=== PATIENT | female | born 1965 | race Caucasian/White ===

== ENCOUNTER 2022-06-21 11:43 | Emergency (ER) | payer MEDICAID, SELFPAY ==
[2022-06-21 12:19] VITALS: BP 155/89; PULSE 87; RESP 16; TEMP 36.4; O2SAT 100; BMI 21.3
[2022-06-21 12:39] LABS: Appearance Urine Clear (Clear); Bilirubin Urine Negative (Negative); Blood Urine Negative (Negative); Color Urine Yellow (Yellow); Glucose Urine Negative (Negative); Ketones Urine Negative (Negative); Leukocyte Esterase Urine Negative (Negative); Nitrite Urine Negative (Negative); Protein Urine Negative (Negative); Urobilinogen Urine 0.2 (0.2-1.0); pH Urine 6.5 (5.0-8.5)
[2022-06-21 13:09] VITALS: BP 145/84; PULSE 77; RESP 22; O2SAT 97
--- NOTE | 2022-06-21 13:16 | CRLHL7_ITS ---
For Patients: As a result of the Century Cures Act, medical imaging exams and procedure reports are released immediately into your electronic medical record. You may view this report before your referring provider. If you have questions, please contact your health care provider. INDICATION: Shortness of breath. TECHNIQUE: Chest 2 views. COMPARISON: None. FINDINGS: Cardiovascular and mediastinum: Unremarkable. Lungs and pleural spaces: The lungs are clear. No pleural effusion or pneumothorax. Bones and soft tissues: No significant findings. IMPRESSION: No evidence of an acute pulmonary process. Dictated by Shin Reyes MD @ 06/21/2022 3:05:56 PM (Electronically Signed)
--- NOTE | 2022-06-21 13:18 | CRLHL7_ITS ---
For Patients: As a result of the Century Cures Act, medical imaging exams and procedure reports are released immediately into your electronic medical record. You may view this report before your referring provider. If you have questions, please contact your health care provider. INDICATION: Left upper quadrant pain. TECHNIQUE: CT abdomen and pelvis without contrast. Coronal and sagittal reformats were generated. COMPARISON: None. FINDINGS: Lower chest: Unremarkable. Liver: Unremarkable within limitations of lack of contrast. Gallbladder and bile ducts: Unremarkable. No stones or inflammation. No biliary dilation. Spleen: Unremarkable within limitations of lack of contrast. Soft tissue density nodule in the hilum is probably a splenule. Pancreas: Unremarkable. Adrenal glands: Unremarkable. No nodules. Kidneys and Ureters: No stones or hydronephrosis. Lymph Nodes and Retroperitoneum: Unremarkable. Vasculature: Unremarkable. GI tract: Unremarkable. Normal in caliber. Few diverticula project from the distal colon. No inflammatory changes to suggest diverticulitis. Peritoneum/Abdominal Wall: Unremarkable. No free air or free fluid. Pelvic Viscera: The uterus is retroflexed. Calcification along the left posterior uterus could be an exophytic degenerating fibroid or focus of scarring from previous fat necrosis. Bladder: Unremarkable. Bones: Unremarkable for age. IMPRESSION: No CT findings to explain the cause of the patient`s symptoms, within limitations of lack of contrast. Please note that all CT scans at this facility use dose modulation, iterative reconstruction, and/or weight-based dosing when appropriate to reduce radiation dose to as low as reasonably achievable. Dictated by Jayme Delgadillo MD @ 06/21/2022 3:06:14 PM (Electronically Signed)
[2022-06-21] MEDS: 0.9 % SODIUM CHLORIDE 1000 ml 1,000 ML IV (13:38)
[2022-06-21] MEDS: ONDANSETRON 2 MG/ML inj 4 MG IVP (13:38)
[2022-06-21 13:40] LABS: Lactate* 0.8 mmol/L (0.5-1.9)
[2022-06-21 13:41] LABS: Troponin, Point-of-Care* 0.01 ng/ml (0.01-0.04)
--- NOTE | 2022-06-21 13:41 | ED_ITS ---
HPI - General Adult General Chief complaint: Abdominal Pain Stated complaint: Stabbing pain right side, nausea Time Seen by Provider: 06/21/22 13:07 Source: patient Mode of arrival: ambulatory Limitations: no limitations History of Present Illness HPI narrative: 56-year-old female coming in today complaining of abdominal pain that started earlier this morning. Pain is located on the left upper abdomen does not r adiate. Nothing makes it better or worse. The pain is constant and she will have waves of sharp pain gets worse. She states that she feels very nauseated but has not vomited. Denies any fevers or chills. Denies any coughing or chest pain. She does not feel short of breath. She denies any urinary symptoms such as increased frequency, urgency or dysuria. No blood in her urine. She states that she had an episode of diarrhea this morning, otherwise stools have been normal for her. She states that she has been feeling dizzy for multiple weeks now. Today is a little bit worse. It is worse with any movement. The room starts to move around her. Patient is on lisinopril and omeprazole for hypertension and GERD. Denies any new medications or recent changes. She does also have a history of migraine headaches, tobacco use disorder, and anxiety. Related Data Home Medications Medication Instructions Recorded Confirmed lisinopril 10 mg tablet 20 mg PO DAILY 06/21/22 06/21/22 omeprazole 20 mg capsule,delayed 20 mg PO DAILY 06/21/22 06/21/22 release Allergies Allergy/AdvReac Type Severity Reaction Status Date / Time Sulfa (Sulfonamide Allergy Mild Verified 06/21/22 12:23 Antibiotics) Review of Systems Status of ROS: Reports: 10 or more systems reviewed and unremarkable except as noted in History and below [facility] Social History Smoking Status: Current every day smoker How often do you have a drink containing alcohol: 4 or more times a week AUDIT-C Alcohol total score: 4 Non-prescribed substance use: denies use Exam Narrative: Exam Narrative: Well-nourished well-developed patient, appears uncomfortable. Alert and oriented. Answers questions appropriately. Mood and affect are appropriate. Thoughts are goal oriented and rational. No tangential or magical thinking noted. Patient speaks in full sentences without needing to catch her breath. Voice is not slurred or pressured. HEENT: Normocephalic atraumatic. Pupils are equally round reactive to light. Extraocular muscles are intact. Conjunctivae are moist without any icterus noted. Moist mucous membranes. Posterior pharynx is normal. Neck is soft without any lymphadenopathy or thyromegaly. No masses are appreciated. Cardiovascular: Heart is regular rate and rhythm S1 and S2 are present without any murmurs. Lungs: Clear to auscultation bilaterally no wheezes rhonchi or rales are appreciated. Patient takes deep breaths without any discomfort. Abdomen: Soft and nondistended with normal bowel sounds. No guarding or rebound. No masses or organomegaly appreciated. She has no specific tenderness on the left side of the abdomen upper quadrant greater than the lower quadrant. No CVA tenderness. Extremities: Bilateral lower extremities are without edema. Normal DP and PT pulses. Skin: Well perfused without any obvious rashes. Strength is 5/5 of the upper and lower extremities. Reflexes are 2+ and symmetric at the knees. Cranial nerves 3-12 are normal. There is no nystagmus either horizontally or vertically. Gait is normal. Const: Vital Signs, click to edit/add: Vital Signs - 24 hr 06/21/22 12:19 06/21/22 13:09 Temperature 97.6 F Pulse Rate [Right Pulse Oximeter] 87 77 Respiratory Rate 16 22 Blood Pressure [Ri ght Upper Arm] 155/89 H 145/84 H Pulse Oximetry 100 97 Oxygen Delivery Me thod Room Air Room Air Course Course Hospital Course: Patient received IV fluids, Zofran and morphine for pain control. Lab work was entirely unremarkable. Chest x-ray, read by me, was normal. Abdominal CT was unremarkable. Vital Signs Vital signs: Initial Vital Signs Temperature 97.6 F 06/21/22 12:19 Temperature Source Temporal Artery Scan 06/21/22 12:19 Pulse Rate 87 06/21/22 12:19 Pulse Rhythm 06/21/22 12:19 Respiratory Rate 16 06/21/22 12:19 Blood Pressure 155/89 H 06/21/22 12:19 Blood Pressure Mean 111 06/21/22 12:19 Blood Pressure Position Sitting 06/21/22 12:19 Pulse Oximetry 100 06/21/22 12:19 Oxygen Delivery Method 06/21/22 12:19 Vital Signs Temperature 97.6 F 06/21/22 12:19 Pulse Rate 87 06/21/22 12:19 Respiratory Rate 16 06/21/22 12:19 Blood Pressure 155/89 H 06/21/22 12:19 Pulse Oximetry 100 06/21/22 12:19 Oxygen Delivery Method 06/21/22 12:19 Temperature 97.6 F 06/21/22 12:19 Pulse Rate 77 06/21/22 13:09 Respiratory Rate 22 06/21/22 13:09 Blood Pressure 145/84 H 06/21/22 13:09 Pulse Oximetry 97 06/21/22 13:09 Oxygen Delivery Method 06/21/22 13:09 Medical Decision Making MDM Narrative Medical decision making narrative: 56-year-old female with left-sided abdominal pain of unclear etiology. We discussed muscle pain, gastritis. We discussed symptomatic treatment and reasons for follow-up. Lab Data Labs: Lab Results 06/21/22 06/21/22 06/21/22 Range/Units 12:25 13:28 13:28 WBC 6.49 (4.50-11.00) K/uL RBC 3.71 L (4.00-5.20) m/uL Hgb 12.5 (12.0-16.0) gm/dL Hct 35.7 (33.0-51.0) % MCV 96 (80-100) fL MCH 34 (26-34) pg MCHC 35 (32-36) gm/dL RDW Coeff of Kenneth 11.4 L (11.5-15.5) % Plt Count 287 (140-440) K/uL Neut % (Auto) 68.2 (42.0-72.0) % Lymph % (Auto) 22.2 (20-44) % [place] % (Auto) 8.0 (0.0-11.0) % Eos % (Auto) 0.9 (0.0-7.0) % Baso % (Auto) 0.5 (0.0-3.0) % Neut # (Auto) 4.43 (1.7-7.0) K/uL Lymph # (Auto) 1.44 (0.90-2.90) K/uL [place] # (Auto) 0.50 (0.00-0.90) K/UL Eos # (Auto) 0.06 (0.00-0.50) K/uL Baso # (Auto) 0.03 (0.00-0.30) K/uL Abs Immat Gran (auto) 0.01 (0.00-0.30) K/uL Imm/Tot Granulo (auto) 0.2 % ESR (2-20) mm/hr D-Dimer Quant (PE/DVT) (0.00-0.50) ug/ml Sodium 133 L (135-149) mmol/L Potassium 4.2 (3.6-5.1) mmol/L Chloride 102 (96-114) mmol/L Carbon Dioxide 24 (20-32) mmol/L BUN 11 (7-30) mg/dL Creatinine 0.6 (0.5-1.5) mg/dL Estimated Creat Clear 104.96 Estimated GFR 105 ml/min Glucose 95 (60-115) mg/dL Lactate (0.5-1.9) mmol/L Calcium 10.5 (8.4-10.6) mg/dL Total Bilirubin (0.1-1.5) mg/dL Direct Bilirubin (0.0-0.5) mg/dL AST (12-35) U/L ALT (4-35) U/L Alkaline Phosphatase (40-150) U/L C-Reactive Protein < 0.5 L (0.5-1.0) mg/dL Total Protein (6.0-8.3) g/dL Albumin (3.3-5.0) g/dL Lipase (23-300) U/L Urine Color Yellow (Yellow) Urine Appearance Clear (Clear) Urine pH 6.5 (5.0-8.5) Ur Specific [place] 1.010 (1.000-1.030) Urine Protein Negative (Negative) Urine Glucose (UA) Negative (Negative) Urine Ketones Negative (Negative) Urine Blood Negative (Negative) Urine Nitrite Negative (Negative) Urine Bilirubin Negative (Negative) Urine Urobilinogen 0.2 (0.2-1.0) Ur Leukocyte Esterase Negative (Negative) POC Troponin I (0.01-0.04) ng/ml 06/21/22 06/21/22 06/21/22 Range/Units 13:28 13:28 13:28 WBC (4.50-11.00) K/uL RBC (4.00-5.20) m/uL Hgb (12.0-16.0) gm/dL Hct (33.0-51.0) % MCV (80-100) fL MCH (26-34) pg MCHC (32-36) gm/dL RDW Coeff of Kenneth (11.5-15.5) % Plt Count (140-440) K/uL Neut % (Auto) (42.0-72.0) % Lymph % (Auto) (20-44) % [place] % (Auto) (0.0-11.0) % Eos % (Auto) (0.0-7.0) % Baso % (Auto) (0.0-3.0) % Neut # (Auto) (1.7-7.0) K/uL Lymph # (Auto) (0.90-2.90) K/uL [place] # (Auto) (0.00-0.90) K/UL Eos # (Auto) (0.00-0.50) K/uL Baso # (Auto) (0.00-0.30) K/uL Abs Immat Gran (auto) (0.00-0.30) K/uL Imm/Tot Granulo (auto) % ESR 5 (2-20) mm/hr D-Dimer Quant (PE/DVT) < 0.27 (0.00-0.50) ug/ml Sodium (135-149) mmol/L Potassium (3.6-5.1) mmol/L Chloride (96-114) mmol/L Carbon Dioxide (20-32) mmol/L BUN (7-30) mg/dL Creatinine (0.5-1.5) mg/dL Estimated Creat Clear Estimated GFR ml/min Glucose (60-115) mg/dL Lactate (0.5-1.9) mmol/L Calcium (8.4-10.6) mg/dL Total Bilirubin 0.9 (0.1-1.5) mg/dL Direct Bilirubin 0.2 (0.0-0.5) mg/dL AST 32 (12-35) U/L ALT 23 (4-35) U/L Alkaline Phosphatase 92 (40-150) U/L C-Reactive Protein (0.5-1.0) mg/dL Total Protein 7.6 (6.0-8.3) g/dL Albumin 4.8 (3.3-5.0) g/dL Lipase 114 (23-300) U/L Urine Color (Yellow) Urine Appearance (Clear) Urine pH (5.0-8.5) Ur Specific [place] (1.000-1.030) Urine Protein (Negative) Urine Glucose (UA) (Negative) Urine Ketones (Negative) Urine Blood (Negative) Urine Nitrite (Negative) Urine Bilirubin (Negative) Urine Urobilinogen (0.2-1.0) Ur Leukocyte Esterase (Negative) POC Troponin I (0.01-0.04) ng/ml 06/21/22 06/21/22 Range/Units 13:28 13:28 WBC (4.50-11.00) K/uL RBC (4.00-5.20) m/uL Hgb (12.0-16.0) gm/dL Hct (33.0-51.0) % MCV (80-100) fL MCH (26-34) pg MCHC (32-36) gm/dL RDW Coeff of Kenneth (11.5-15.5) % Plt Count (140-440) K/uL Neut % (Auto) (42.0-72.0) % Lymph % (Auto) (20-44) % [place] % (Auto) (0.0-11.0) % Eos % (Auto) (0.0-7.0) % Baso % (Auto) (0.0-3.0) % Neut # (Auto) (1.7-7.0) K/uL Lymph # (Auto) (0.90-2.90) K/uL [place] # (Auto) (0.00-0.90) K/UL Eos # (Auto) (0.00-0.50) K/uL Baso # (Auto) (0.00-0.30) K/uL Abs Immat Gran (auto) (0.00-0.30) K/uL Imm/Tot Granulo (auto) % ESR (2-20) mm/hr D-Dimer Quant (PE/DVT) (0.00-0.50) ug/ml Sodium (135-149) mmol/L Potassium (3.6-5.1) mmol/L Chloride (96-114) mmol/L Carbon Dioxide (20-32) mmol/L BUN (7-30) mg/dL Creatinine (0.5-1.5) mg/dL Estimated Creat Clear Estimated GFR ml/min Glucose (60-115) mg/dL Lactate 0.8 (0.5-1.9) mmol/L Calcium (8.4-10.6) mg/dL Total Bilirubin (0.1-1.5) mg/dL Direct Bilirubin (0.0-0.5) mg/dL AST (12-35) U/L ALT (4-35) U/L Alkaline Phosphatase (40-150) U/L C-Reactive Protein (0.5-1.0) mg/dL Total Protein (6.0-8.3) g/dL Albumin (3.3-5.0) g/dL Lipase (23-300) U/L Urine Color (Yellow) Urine Appearance (Clear) Urine pH (5.0-8.5) Ur Specific [place] (1.000-1.030) Urine Protein (Negative) Urine Glucose (UA) (Negative) Urine Ketones (Negative) Urine Blood (Negative) Urine Nitrite (Negative) Urine Bilirubin (Negative) Urine Urobilinogen (0.2-1.0) Ur Leukocyte Esterase (Negative) POC Troponin I 0.01 (0.01-0.04) ng/ml Imaging Data Chest x-ray: Attestation: I have reviewed the pertinent imaging results. Radiologist's impression: Chest 2 views. COMPARISON: None. FINDINGS: Cardiovascular and mediastinum: Unremarkable. Lungs and pleural spaces: The lungs are clear. No pleural effusion or pneumothorax. Bones and soft tissues: No significant findings. IMPRESSION: No evidence of an acute pulmonary process. CT scan - abdomen: Attestation: I have reviewed the pertinent imaging results. Radiologist's impression: CT abdomen and pelvis without contrast. Coronal and sagittal reformats were generated. COMPARISON: None. FINDINGS: Lower chest: Unremarkable. Liver: Unremarkable within limitations of lack of contrast. Gallbladder and bile ducts: Unremarkable. No stones or inflammation. No biliary dilation. Spleen: Unremarkable within limitations of lack of contrast. Soft tissue density nodule in the hilum is probably a splenule. Pancreas: Unremarkable. Adrenal glands: Unremarkable. No nodules. Kidneys and Ureters: No stones or hydronephrosis. Lymph Nodes and Retroperitoneum: Unremarkable. Vasculature: Unremarkable. GI tract: Unremarkable. Normal in caliber. Few diverticula project from the distal colon. No inflammatory changes to suggest diverticulitis. Peritoneum/Abdominal Wall: Unremarkable. No free air or free fluid. Pelvic Viscera: The uterus is retroflexed. Calcification along the left posterior uterus could be an exophytic degenerating fibroid or focus of scarring from previous fat necrosis. Bladder: Unremarkable. Bones: Unremarkable for age. IMPRESSION: No CT findings to explain the cause of the patient`s symptoms, within limitations of lack of contrast. ECG Data Attestation: I personally reviewed and interpreted this ECG as follows: (Normal sinus rhythm, prolonged QT, pulse 65) Discharge Plan Discharge Clinical Impression: Prolonged QT interval, Abdominal pain Patient Disposition: Home, Self-Care Condition: Stable Additional Instructions: Okay to take Tylenol as needed for discomfort. Okay to use a heating pad to tender area, do not apply heat directly to skin. Recommend you follow-up with your primary care provider to discuss abnormality on EKG. Return to the ER if your pain gets worse or you develop a fever. Prescriptions: No Action lisinopril 10 mg tablet 20 mg PO DAILY omeprazole 20 mg capsule,delayed release(DR/EC) 20 mg PO DAILY Follow Up/Referrals: Lis Ayala MD [Primary Care Provider] - Stand Alone Forms: [employer] Info Instructions
[2022-06-21] MEDS: MORPHINE 2 MG/ML inj IVP (13:50)
[2022-06-21 13:52] LABS: Basophils Absolute Auto 0.03 K/uL (0.00-0.30); Basophils Percent Auto 0.5 % (0.0-3.0); Eosinophils Absolute Auto 0.06 K/uL (0.00-0.50); Eosinophils Percent Auto 0.9 % (0.0-7.0); Hematocrit 35.7 % (33.0-51.0); Hemoglobin* 12.5 gm/dL (12.0-16.0); Immature Granulocytes Abs Auto 0.01 K/uL (0.00-0.30); Immature Granulocytes Pct Auto 0.2 %; Lymphocytes Absolute Auto 1.44 K/uL (0.90-2.90); Lymphocytes Percent Auto 22.2 % (20-44); Mean Corpuscular HGB Conc 35 gm/dL (32-36); Mean Corpuscular Hemoglobin 34 pg (26-34); Mean Corpuscular Volume 96 fL (80-100); Neutrophils Absolute Auto 4.43 K/uL (1.7-7.0); Neutrophils Percent Auto 68.2 % (42.0-72.0); Platelet Count* 287 K/uL (140-440); RDW Coefficient of Variation % 11.4 % (11.5-15.5); Red Blood Count 3.71 m/uL (4.00-5.20); White Blood Count* 6.49 K/uL (4.50-11.00)
[2022-06-21 13:57] LABS: Slide Review Reflex No
[2022-06-21 13:59] LABS: Albumin* 4.8 g/dL (3.3-5.0)
[2022-06-21 14:00] VITALS: BP 149/87; PULSE 64; RESP 18; O2SAT 100
[2022-06-21 14:00] LABS: Chloride* 102 mmol/L (96-114); Potassium* 4.2 mmol/L (3.6-5.1); Sodium* 133 mmol/L (135-149)
[2022-06-21 14:01] LABS: Bilirubin Direct* 0.2 mg/dL (0.0-0.5); Bilirubin Total* 0.9 mg/dL (0.1-1.5); Total Protein* 7.6 g/dL (6.0-8.3)
[2022-06-21 14:02] LABS: Alanine Aminotransferase* 23 U/L (4-35); Alkaline Phosphatase* 92 U/L (40-150); Aspartate Amino Transferase* 32 U/L (12-35); Creatinine* 0.6 mg/dL (0.5-1.5); Est. Creatinine Clearance* 104.96; Estimated Glomerular Filt Rate 105 ml/min; Lipase* 114 U/L (23-300)
[2022-06-21 14:03] LABS: Blood Urea Nitrogen* 11 mg/dL (7-30); Carbon Dioxide* 24 mmol/L (20-32)
[2022-06-21 14:04] LABS: Calcium* 10.5 mg/dL (8.4-10.6); Glucose* 95 mg/dL (60-115)
[2022-06-21 14:20] LABS: C Reactive Protein* < 0.5 mg/dL (0.5-1.0)
[2022-06-21 14:29] LABS: D Dimer Quantitative* < 0.27 ug/ml (0.00-0.50)
[2022-06-21 14:39] LABS: Erythrocyte SedimentationRate* 5 mm/hr (2-20)
[2022-06-21 15:00] VITALS: BP 144/83; PULSE 67; O2SAT 99
== END 2022-06-21 15:31 | disposition home or self-care (01) ==
PROVIDERS: Emergency Provider Family Medicine; PCP Family Medicine
DX: R10.12 Left upper quadrant pain (principal); I45.81 Long QT syndrome
CPT/HCPCS: 36415; 71046; 74176; 80048; 80076; 81001; 81003; 83605; 83690; 85025; 85379; 85651; 86140; 87086; 93005; 94761; 96374; 96375; 99285; J2270; J2405; J7030

== ENCOUNTER 2023-05-29 15:11 | Emergency (ER) | payer MEDICAID, SELFPAY ==
[2023-05-29] VITALS (15 sets, daily range): BP systolic 95–138; BP diastolic 60–72; PULSE 62–81; RESP 20; TEMP 36.5; O2SAT 82–100; BMI 20.4
--- NOTE | 2023-05-29 15:47 | ED_ITS ---
HPI - General Adult General Date Seen: 05/29/23 Chief complaint: Cough Stated complaint: Upper resp issues-persistent cough-sent from [facility] Time Seen by Provider: 05/29/23 15:42 History of Present Illness HPI narrative: This is a 57-year-old female who presents to the ER today for evaluation of symptoms including cough, possible pneumonia, dizziness, generalized weakness. She was sent from the [facility] because of her symptoms and borderline low blood pressure in clinic today on multiple readings. Per clinic notes, ? Symptoms started with an itchy throat and then she developed a cough. Current symptoms include sinus pain or pressure (improving), nonproductive cough, and chest congestion. Cough is dry and tight, constant. Her chest feels tight to breath and she feels like it's more of an effort to breath. Breathing is harder with walking and activity. She is wheezing. She is sweaty and chilled. She had a fever of 100.6 two days. Earlier today she had a temp of 100.1. She threw up once several days ago. She has had pneumonia in the past and is worried about this possibility today as symptoms feel similar. She feels a little woozy today. She denies dysphagia, hemoptysis, and exertional chest pain. Harper has tried Mucinex and decongestants which have not been helpful. Appetite and energy are decreased. Urinating normally, at least four times per day. Symptoms are worse since the onset. Harper does not report sick contacts. They deny any known COVID, strep, influenza or mono exposure. The patient denies a history of asthma. She admits to current smoke exposure WBC 9.9, hemoglobin 14.2, platelet count 279 69% neutrophils, 21% lymphocytes, 7.8% monocytes, 1% eosinophils Chest x-ray ?no obvious infiltrates or abnormalities on my read? Formal chest x-ray Radiology interpretation FINDINGS: Cardiovascular and mediastinum: Heart size and vasculature are normal in caliber and appearance. ? Lungs and pleural spaces: Lungs are mildly hyperinflated. No sign of infiltrate or mass. No sign of pleural effusion. No pneumothorax. ? Bones and soft tissues: No significant findings. ? IMPRESSION: Mild obstructive pulmonary physiology. No infiltrate. ? ? * The patient presents with 5 days of cough, now with low-grade temperature, dyspnea on exertion, wheezing, and in clinic today she is found to be significantly hypotensive compared to her normal blood pressure readings. She actually appears quite well but does tell me she feels a little lightheaded and dizzy. I am concerned for possible pneumonia and now possibly sepsis given her increased respiration rate, hypotension, and low-grade temps. This is discussed with the patient. We will proceed with CBC and chest x-ray for now. ? * CBC is within normal levels but white count is at high end of normal. ? * EKG does not show any heart block, ST abnormalities, or changes from last EKG. I do not see any signs here that would be responsible for hypotension. ? * Chest x-ray does not show obvious pneumonia or other abnormality on my read. Radiology read pending. ? * At this time I am concerned about her hypotension, increased respiratory rate, and low-grade temperatures. Ultimately I am concerned that she may be moving towards sepsis and believe she needs higher level of evaluation in the ER setting. I am unable to get a lactic acid here. She may warrant observation or possibly even admission based on her findings. This is discussed with the patient as well as the ER and both parties agree. Patient will travel by private vehicle, her will drive her. I feel this is reasonable. She declined ambulance and understands the risks Patient confirms that she has had symptoms of sore throat and to clean throat beginning last , cough beginning following that. Cough has been largely nonproductive. She had 1 episode of vomiting on Monday. She has been trying to drink at least 4 glasses of water per day. Appetite has been less for salts. No diarrhea. No recurrent vomiting. She has been urinating and urine has been fairly bright yellow. No abdominal pain. No rash. No swelling in her legs. She has a history of similar cough in the past when she has had pneumonia bronchitis. She is a smoker. She does not have any previous diagnosis of asthma or COPD but does recall that she had been given an inhaler previously. Today she is just feeling run down. She is tired. She has a little bit dizzy. No chest pain. No abdominal pain. No vomiting. No hematemesis or black stool. Related Data Home Medications Medication Instructions Recorded Confirmed lisinopril 10 mg tablet 20 mg PO DAILY 06/21/22 06/21/22 omeprazole 20 mg capsule,delayed 20 mg PO DAILY 06/21/22 06/21/22 release Previous Rx's Medication Instructions Recorded albuterol sulfate 90 mcg/actuation 1 inh inhalation QID PRN shortness 05/29/23 aerosol inhaler of breath or wheezing #6.7 grams Allergies Allergy/AdvReac Type Severity Reaction Status Date / Time Sulfa (Sulfonamide Allergy Mild Verified 06/21/22 12:23 Antibiotics) [facility] Social History Smoking Status: Current every day smoker What tobacco products do you use: cigarettes Smoking packs per day: 0.5 Smoking cigarettes per day: 10.0 Years smoked: 40 Smoking pack-years: 20.00 Do you use any of these nicotine containing products: E-Cigarettes Second hand tobacco smoke exposure: No How often do you have a drink containing alcohol: 4 or more times a week How many standard drinks containing alcohol do you have on a typical day: 3 or 4 How often do you have six or more drinks on one occasion: Weekly AUDIT-C Alcohol total score: 8 Non-prescribed substance use: denies use service: No Exam Narrative: Exam Narrative: Constitutional: Appears well-developed and well-nourished. Alert. Conversant. Non toxic. attentive had her side. HENT: Head: Atraumatic. Nose: Nose normal. Mouth/Throat: Oral mucosa is clear but mucous membranes are dry. Not desiccated a cracked. no trismus. Pharynx normal. Tonsils symmetric. No tonsillar enlargement, erythema, or exudate. Eyes: Conjunctivae normal. EOM normal. Pupils equal, round, and reactive to light. No scleral icterus. Neck: Normal range of motion. Neck supple. No tracheal deviation present. Cardiovascular: Normal rate, regular rhythm. No gallop. No friction rub. No murmur heard. Symmetric radial artery pulses Pulmonary/Chest: Effort normal. Occasional dry cough. No stridor. No respiratory distress. Fairly clear inspiration and expiration with gentle breathing, but When coughing she does have wheezes. No rales. No rhonchi . No tenderness. Abdominal: Soft. No distension. No mass. No tenderness. No rebound. No guarding. Musculoskeletal: RUE: Normal range of motion. No tenderness. No deformity LUE: Normal range of motion. No tenderness. No deformity RLE: Normal range of motion. No edema. No tenderness. No deformity LLE: Normal range of motion. No edema. No tenderness. No deformity Lymph: No cervical adenopathy. Neurological: Alert and oriented to person, place, and time. Normal strength. CN II-VII intact. No sensory deficit. GCS eye subscore is 4. GCS verbal subscore is 5. GCS motor subscore is 6. Normal coordination Skin: Skin is warm and dry. No rash noted. No pallor. Normal capillary refill. Psychiatric: Normal mood. Normal affect. Const: Vital Signs, click to edit/add: Vital Signs - 24 hr 05/29/23 15:19 05/29/23 15:40 05/29/23 15:45 Temperature 97.7 F Pulse Rate 63 67 Pulse Rate [Pulse Oximeter] 78 Respiratory Rate 20 Blood Pressure Blood Pressure [Ri ght Upper Arm] 95/60 Pulse Oximetry 97 98 99 Oxygen Delivery Me thod Room Air 05/29/23 16:00 05/29/23 16:01 05/29/23 16:15 Temperature Pulse Rate 68 67 63 Pulse Rate [Pulse Oximeter] Respiratory Rate Blood Pressure 106/69 Blood Pressure [Ri ght Upper Arm] Pulse Oximetry 100 99 99 Oxygen Delivery Me thod 05/29/23 16:30 05/29/23 16:31 05/29/23 16:45 Temperature Pulse Rate 66 67 62 Pulse Rate [Pulse Oximeter] Respiratory Rate Blood Pressure 95/63 Blood Pressure [Ri ght Upper Arm] Pulse Oximetry 100 100 100 Oxygen Delivery Me thod 05/29/23 17:00 05/29/23 17:02 05/29/23 17:15 Temperature Pulse Rate 63 67 80 Pulse Rate [Pulse Oximeter] Respiratory Rate Blood Pressure 138/72 Blood Pressure [Ri ght Upper Arm] Pulse Oximetry 100 100 100 Oxygen Delivery Me thod 05/29/23 17:30 05/29/23 17:31 05/29/23 17:45 Temperature Pulse Rate 81 72 77 Pulse Rate [Pulse Oximeter] Respiratory Rate Blood Pressure 114/71 Blood Pressure [Ri ght Upper Arm] Pulse Oximetry 100 100 82 L Oxygen Delivery Me thod Course Course ED Course: Recheck-still coughing after neb. Lung sounds are more clear. Vital Signs Vital signs: Initial Vital Signs Temperature 97.7 F 05/29/23 15:19 Temperature Source Temporal Artery Scan 05/29/23 15:19 Pulse Rate 78 05/29/23 15:19 Pulse Rhythm Regular 05/29/23 15:19 Respiratory Rate 20 05/29/23 15:19 Blood Pressure 95/60 05/29/23 15:19 Blood Pressure Mean 71 05/29/23 15:19 Blood Pressure Position Sitting 05/29/23 15:19 Pulse Oximetry 97 05/29/23 15:19 Oxygen Delivery Method Room Air 05/29/23 15:19 Vital Signs Temperature 97.7 F 05/29/23 15:19 Pulse Rate 78 05/29/23 15:19 Respiratory Rate 20 05/29/23 15:19 Blood Pressure 95/60 05/29/23 15:19 Pulse Oximetry 97 05/29/23 15:19 Oxygen Delivery Method Room Air 05/29/23 15:19 Temperature 97.7 F 05/29/23 15:19 Pulse Rate 77 05/29/23 17:45 Respiratory Rate 20 05/29/23 15:19 Blood Pressure 114/71 05/29/23 17:31 Pulse Oximetry 82 L 05/29/23 17:45 Oxygen Delivery Method Room Air 05/29/23 15:19 Medications Administered Medications: Discontinued Medications Generic Name Dose Route Start Last Admin Trade Name Freq PRN Reason Stop Dose Admin Albuterol 2 puff 05/29/23 16:24 05/29/23 17:42 Albuterol Inhaler IH 05/29/23 16:25 Not Given ONCE ONE Albuterol 2.5 mg 05/29/23 16:30 05/29/23 16:55 Albuterol Sulfate 2.5 Mg/3 Ml Vial.Neb NEB 05/29/23 16:31 2.5 mg ONCE ONE Administration Sodium Chloride 1,000 mls @ 1,000 mls/hr 05/29/23 16:30 05/29/23 17:54 0.9 % Sodium Chloride 1000 Ml IV 05/29/23 17:29 Infused .Q1H MITRA Infusion Ketorolac Tromethamine 15 mg 05/29/23 16:24 05/29/23 16:50 Ketorolac 15 Mg/Ml Inj IVP 05/29/23 16:25 15 mg ONCE ONE Administration Medical Decision Making MDM Narrative Medical decision making narrative: This patient presents for evaluation of symptoms that began about 5 days ago with sore throat, also cough, headache, body aches, fatigue, leading to weakness and lightheadedness today. She was hypotensive at the outpatient clinic and referred here to the ER. Fortunately chest x-ray from the [facility] is read by Radiology to be negative for pneumonia or any focal infiltrate. She is negative for COVID/influenza/RSV by testing here in the ER. White count and other laboratory workup is reassuring. Patient did have borderline low blood pressure when she present here to the ER. After L of IV fluid blood pressure normalized up to 115. Lactic acid is normal. At this point no clear evidence for sepsis or septic shock. Suspect her low blood pressure readings in clinic likely reflecting dehydration and hypovolemia from decreased oral intake in the setting of fevers over the past couple of days.. There is no signs at this point of serious bacterial infection such as OM, RPA, epiglottitis, [employer], strep pharyngitis, pneumonia, sinusitis, meningitis, bacteremia. She had 1 episode of vomiting a couple of days ago but no ongoing gastrointestinal symptoms at this point . She is feeling better after IV fluids. She did have some improvement in her lung sounds after bronchodilator. She does have significant tobacco exposure. Will treat her with bronchodilators for possible bronchospasm as sociated with this infection. Given the potential for bacterial infection when her history of pneumonias will put her on a course of doxycycline. Discussed with the patient that there is symptoms may actually be entirely viral. Close followup with primary care physician is indicated. Return to ED for fever > 103, protracted vomiting, confusion, or other worsening. Lab Data Labs: Lab Results 05/29/23 05/29/23 Range/Units 15:17 16:35 WBC 7.13 (4.50-11.00) K/uL RBC 3.85 L (4.00-5.20) m/uL Hgb 12.9 (12.0-16.0) gm/dL Hct 35.9 (33.0-51.0) % MCV 93 (80-100) fL MCH 34 (26-34) pg MCHC 36 (32-36) gm/dL RDW Coeff of Kenneth 11.5 (11.5-15.5) % Plt Count 262 (140-440) K/uL Neut % (Auto) 58.0 (42.0-72.0) % Lymph % (Auto) 30.0 (20-44) % Coles % (Auto) 10.1 (0.0-11.0) % Eos % (Auto) 1.4 (0.0-7.0) % Baso % (Auto) 0.4 (0.0-3.0) % Neut # (Auto) 4.13 (1.7-7.0) K/uL Lymph # (Auto) 2.14 (0.90-2.90) K/uL Coles # (Auto) 0.70 (0.00-0.90) K/UL Eos # (Auto) 0.10 (0.00-0.50) K/uL Baso # (Auto) 0.03 (0.00-0.30) K/uL Abs Immat Gran (auto) 0.01 (0.00-0.30) K/uL Imm/Tot Granulo (auto) 0.1 % Sodium 131 L (135-149) mmol/L Potassium 4.0 (3.6-5.1) mmol/L Chloride 102 (96-114) mmol/L Carbon Dioxide 22 (20-32) mmol/L Anion Gap 7 (7-15) mEq/L BUN 14 (7-30) mg/dL Creatinine 0.8 (0.5-1.5) mg/dL Estimated Creat Clear 72.22 Estimated GFR 86 ml/min Glucose 86 (60-115) mg/dL Lactate 1.1 (0.5-1.9) mmol/L Calcium 10.3 (8.4-10.6) mg/dL SARS-CoV-2 (PCR) Negative SARS-CoV-2 (Negative) Influenza Type A (PCR) Negative PCR FLU A (Negative) Influenza Type B (PCR) Negative PCR FLU B (Negative) RSV (PCR) Negative PCR RSV (Negative) Discharge Plan Discharge Clinical Impression: Cough, Wheezing, Blood pressure abnormally low, Dehydration Patient Disposition: Home, Self-Care Condition: Stable Instructions: Dehydration (DC), Acute Cough (ED) Additional Instructions: As we discussed, please come back to the ER right away if you have any worsening symptoms such as worsening cough, trouble breathing, chest tightness, dizziness or lightheadedness, or low blood pressure. To treat your cough use the albuterol inhaler if needed. You can use [id number] cough medications such as Mucinex as well. Take the antibiotics to help cover for possible bacterial infections (although your chest x-ray from the [facility] today does not show any pneumonia) Drink plenty of fluids. We suspect that the reason why your blood pressure was low and he was feeling so weak today was dehydration. Please return to the ER or see your doctor if your not completely improved within 3-4 days. Prescriptions: New albuterol sulfate 90 mcg/actuation HFA aerosol inhaler 1 inh inhalation QID PRN (Reason: shortness of breath or wheezing) Qty: 6.7 0RF No Action lisinopril 10 mg tablet 20 mg PO DAILY omeprazole 20 mg capsule,delayed release(DR/EC) 20 mg PO DAILY Follow Up/Referrals: Lis Ayala MD [Primary Care Provider] - Stand Alone Forms: Sp[facility] [employer] Info Instructions
[2023-05-29 16:01] LABS: PCR FLU A Negative PCR FLU A (Negative); PCR FLU B Negative PCR FLU B (Negative); PCR RSV Negative PCR RSV (Negative)
[2023-05-29 16:03] LABS: SARS PCR* Negative SARS-CoV-2 (Negative)
[2023-05-29 16:45] LABS: Lactate* 1.1 mmol/L (0.5-1.9)
[2023-05-29 16:46] LABS: Basophils Absolute Auto 0.03 K/uL (0.00-0.30); Basophils Percent Auto 0.4 % (0.0-3.0); Eosinophils Percent Auto 1.4 % (0.0-7.0); Hematocrit 35.9 % (33.0-51.0); Hemoglobin* 12.9 gm/dL (12.0-16.0); Immature Granulocytes Abs Auto 0.01 K/uL (0.00-0.30); Immature Granulocytes Pct Auto 0.1 %; Lymphocytes Absolute Auto 2.14 K/uL (0.90-2.90); Mean Corpuscular HGB Conc 36 gm/dL (32-36); Mean Corpuscular Hemoglobin 34 pg (26-34); Mean Corpuscular Volume 93 fL (80-100); Monocytes Percent Auto 10.1 % (0.0-11.0); Neutrophils Absolute Auto 4.13 K/uL (1.7-7.0); Platelet Count* 262 K/uL (140-440); RDW Coefficient of Variation % 11.5 % (11.5-15.5); Red Blood Count 3.85 m/uL (4.00-5.20); White Blood Count* 7.13 K/uL (4.50-11.00)
[2023-05-29] MEDS: KETOROLAC 15 MG/ML inj IVP (16:50)
[2023-05-29] MEDS: 0.9 % SODIUM CHLORIDE 1000 ml 1,000 ML IV (16:51)
[2023-05-29] MEDS: ALBUTEROL SULFATE 2.5 MG/3 ML VIAL.NEB NEB (16:55)
[2023-05-29 16:58] LABS: Slide Review Reflex No
[2023-05-29 17:01] LABS: Chloride* 102 mmol/L (96-114); Sodium* 131 mmol/L (135-149)
[2023-05-29 17:04] LABS: Anion Gap 7 mEq/L (7-15); Blood Urea Nitrogen* 14 mg/dL (7-30); Carbon Dioxide* 22 mmol/L (20-32); Creatinine* 0.8 mg/dL (0.5-1.5); Est. Creatinine Clearance* 72.22; Estimated Glomerular Filt Rate 86 ml/min; Glucose* 86 mg/dL (60-115)
[2023-05-29 17:05] LABS: Calcium* 10.3 mg/dL (8.4-10.6)
== END 2023-05-29 17:57 | disposition home or self-care (01) ==
PROVIDERS: Emergency Provider Emergency Medicine; PCP Family Medicine
DX: R06.2 Wheezing (principal); R05.9 Cough, unspecified; I95.9 Hypotension, unspecified; E86.0 Dehydration
CPT/HCPCS: 36415; 80048; 83605; 85025; 87631; 94640; 96361; 96374; 99283; 99284; J1885; J7030

== ENCOUNTER 2024-09-27 11:52 | Emergency (ER) | payer MEDICAID, SELFPAY ==
[2024-09-27] VITALS (20 sets, daily range): BP systolic 118–141; BP diastolic 72–83; PULSE 66–81; RESP 14–22; TEMP 36.4; O2SAT 96–100; BMI 20.5
--- OUTSIDE RECORDS SUMMARY | 2024-09-27 11:54 | XMS_ITS | Clinical Summary ---
Author Organization [email or web address] [facility] Address [address] [place] [id number] Care Team Providers Care Md Physician Dermatologist Name Role Phone Lis Ayala MD Primary Care Provider Allergies Active Allergy Reactions Criticality Noted Date Comments Sulfa (Sulfonamide Antibiotics) Itching,Fever 1 Medications lidocaine 5 % topical patchIndication s:Acute right-sided low back pain with right-sided sciatica Apply to intact skin to cover most painful area for max 12hr per 24hr period. 10 Patch 4 Active cyclobenzaprine (FLEXERIL) 10 mg tabletIndicatio ns:Acute right-sided low back pain with right-sided sciatica Take 1 Tablet (10 mg) by mouth 3 times daily if needed for Muscle Spasm. 20 Tablet 4 Active estradioL (ESTRACE) 0.01% (0.1 mg/g) vaginal creamIndication s:Genitourinary syndrome of menopause Insert 1 g into the vagina once daily for 2 weeks, then decrease frequency to 2-3 times weekly for maintenance treatment. 42.5 g 3 4 Active hydrocortisone (ANUSOL-HC) 2.5 % rectal creamIndication s:Hemorrhoids, external Apply topically to affected area(s) two times daily. 28 g 2 4 Active lisinopriL (PRINIVIL; ZESTRIL) 20 mg tabletIndicatio ns:HTN (hypertension) Take 1 Tablet (20 mg) by mouth once daily. 30 Tablet 5 Active Active Problems Problem Noted Date Diagnosed Date Hypertension 01/02/2023 Prolonged QT interval 06/24/2022 Pap smear for cervical cancer screening 11/25/19 Overview (02/11/2022): Plan: Pap and HPV 11/2026 Pain in joint, shoulder region 01/08/2008 CHEST DISCOMFORT OR TIGHTNESS; NONCARDIAC 2006 Encounters Date Type Department Care Team Description 09/27/2024 Nurse Triage [facility] [address] [place] [address] Lis Ayala MD Chest Pain 08/06/2024 3:00 PM SCREEN REPAIRER CRUSHER Ancillary Procedure [facility] [address] [place] [address] 08/05/2024 Travel from Last 3 Months Immunizations Name Administration Dates Next Due Influenza, IIV3 (Age 6-35 mos) 03/19/2010 Influenza, IIV3 (Age >=3 years) 02/29/2012,05/19,05/01/2006 Pneumococcal Conj 20-valent (Prevnar 20) 022 Tdap 11/24/2021,05/01/2006 Zoster (Shingrix-RZV, recombinant) 02/04/2022, Family History Medical History Relation Name Comments Cancer-breast No Family History Social History Tobacco Use Types Packs/Day Years Used Date Smoking Tobacco: Every Day Smokeless Tobacco: Never Tobacco Cessation:Ready to Q uit: No; Counseling Given: Yes Alcohol Use Standard Drinks/Week Comments Yes 3 (1 standard drink = 0.6 oz pur e alcohol) 3+ daily PHQ-2 Answer Date Recorded PHQ-2 TOTAL SCORE 0 11/17/2021 Social Connections Answer Date Recorded Do you often feel lonely or isolated from those around you? 0 06/11/2024 Financial Resource Strain Answer Date R ecorded Difficulty of Paying Living Expenses 3 06/11/2024 Difficulty of Paying Living Expenses Not on file 06/11/2024 Food Insecurity Answer Date Recorded Do you worry your food will run out before you are able to buy more? 1 06/11/2024 Transportation Needs Answer Date Record ed Does lack of transportation keep you from medica l appointments? 1 06/11/2024 Does lack of transportation keep you from work, meetings or getting things that you need? 1 06/11/2024 Housing Stability Answer Date Recorded What is your housing situation today? 1 06/11/2024 Interpersonal Safety Answer Date Record ed Are you being hit, kicked, p ushed or yelled at (see row info)? No 10/01/2023 Interpersonal Safety Abuse 12 - 18 Not on file 10/01/2023 Interpersonal Safety Ambulatory Vulnerability No t on file 10/01/2023 Utilities Answer Date Recorded Do you have trouble paying f or utilities (for example, heat, electricity, water, phone)? 1 06/11/2024 Comments No Sex and Gender Information Value Date Recorded Sex Assigned at Not on file Legal Sex Female 5:42 AM SCREEN REPAIRER CRUSHER Gender Identity Not on file Sexual Orientation Not on file Obstetrics History Last Filed Vital Signs Vital Sign Reading Time Taken Comments Blood Pressure 142/83 06/12/2024 9:12 AM SCREEN REPAIRER CRUSHER Pulse 68 06/12/2024 9:12 AM SCREEN REPAIRER CRUSHER Temperature 37 C (98.6 F) 06/12/2024 9:12 AM SCREEN REPAIRER CRUSHER Respiratory Rate 16 10/01/2023 2:55 PM CDT Oxygen Saturation 100% 06/12/2024 9:12 AM SCREEN REPAIRER CRUSHER Inhaled Oxygen Concentration - - Weight 62.1 kg (137 lb) 06/12/2024 9:12 AM SCREEN REPAIRER CRUSHER Height 168.9 cm (5' 6.5) 10/01/2023 2:55 PM CDT Body Mass Index 21.78 10/01/2023 2:55 PM CDT Plan of Treatment Upcoming Encounters Date Type Department Care Team (Late st Contact Info) Description 10/14/2024 4:00 PM CDT Office Visit [facility] [address] [place] [address] Lis Ayala MD [address] [place] [address] Health Maintenance Due Date Last Done Comments HIV for age 15-65 1980 Hepatitis C screening for ag e 18-79 10/23/1983 Depression screening for age 12+ 11/18/2022 11/19/19 22, 11/17/2021 BMI (ht and wt on same day) for age 18+ 01/03/2024 01/02/2023, 11/24/2021, 11/17/2021 Mammogram for age 45-75 03/15/2024 03/15/20 23, 11/18/2021, 10/25/2007 COVID-19 vaccine series ( season) 2024 Influenza for age 50-64 03/24/2024 02/29/20 12, 05/19/2007, 05/01/2006 Fecal testing sDNA-FIT ([place]) for age 45-75 12/01/2024 12/01/2021 Lipids for age 45-75 11/24/2026 11/24/2021, 05/12/20 Pap test for age 21-65 11/24/2026 , 11/24/2021, 08/09/2010, Additional history exists Tetanus booster 11/25/2031 11/24/2021, 05/01/2006 Pneumococcal series for age 50+ Completed Tdap Completed 11/24/2021, 05/01/2006 Zoster (shingles) series for age 50+ Completed 02/04/2022, 11/24/2021 Procedures Procedure Name Priority Date/Time Associated Diagnosis Comments XR ABDOMEN 2 VIEW FLAT AND UPRIGHT OR DECUBITUS Routine 08/06/2024 3:12 PM SCREEN REPAIRER CRUSHER Abnormal CT scan XR MAMMO AASHISH BILAT DIAG Routine 03/15/2023 2:04 PM CDT Breast pain FECAL DNA (AKA COLOGUARD) Routine 12/01/2021 10:07 AM CDT Screening for colon cancer LIPID PANEL Routine 11/24/2021 2:22 PM CDT Lipid screening HPV HIGH RISK Routine 11/24/2021 1:55 PM CDT Screening for cervical cancer from Last 3 Months or Most Recently Relevant to Health Maintenance Results * XR ABDOMEN 2 VIEW FLAT AND UPRIGHT OR DECUBITUS (08/06/2024 3:12 PM SCREEN REPAIRER CRUSHER) Anatomical Region Laterality Modality Abdomen Computed Radiogr aphy 08/06/2024 3:36 PM SCREEN REPAIRER CRUSHER Narrative 08/06/2024 3:36 PM SCREEN REPAIRER CRUSHER For Patients: As a result of the Cures Act, medical imaging exams and procedure reports are released immediately into your electronic medical record. You may view this report before your referring provider. If you have questions, please contact your health care provider. Indication: Follow-up CT scan Technique: Abdomen 1 view. Comparison: CT 06/12/2024 Findings: Calcified uterine fibroid again noted. No dilated bowel loops. No pleural effusion. Normal psoas margins. Osseous structures unremarkable. Impression: No bowel obstruction. No inflammatory changes. Dictated by Calderon Aggarwal MD @ 08/06/2024 3:36:08 PM (Electronically Signed) Procedure Note Calderon Aggarwal MD - 08/06/2024 For Patients: As a result of the Cures Act, medical imagingexams and procedure reports are released immediately into your electronicmedical record. You may view this report before your referring provider.If you have questions, please contact your health care provider. Indication: Follow-up CT scan Technique: Abdomen 1 view. Comparison: CT 06/12/2024 Findings: Calcified uterine fibroid again noted. No dilated bowel loops. No pleuraleffusion. Normal psoas margins. Osseous structures unremarkable. Impression: No bowel obstruction. No inflammatory changes. Dictated by Calderon Aggarwal MD @ 08/06/2024 3:36:08 PM (Electronically Signed) us Sunny Boston DO GENERAL IMAGING Final Res ult * XR MAMMO AASHISH BILAT DIAG (03/15/2023 2:04 PM CDT) Anatomical Region Laterality Modality BREASTS, Breast Left, Breast Right Bilateral Mammography Impressions 03/16/2023 1:27 PM CDT Stable and negative mammogram. Directed BILATERAL breast ultrasound with this radiologist present. The RIGHT breast was carefully scanned between the 8 and 9 o'clock position and only normal breast tissue was identified. The LEFT breast was carefully scanned between the 3 and 4 o'clock position and only normal breast tissue was identified. These findings were discussed briefly with the patient. RECOMMENDATION: Any further workup or follow-up should be based on clinical grounds. Annual mammography is also recommended. BI-RADS Category 1: Negative Arthur Meier M.D. Diagnostic/Nuclear Medicine Radiologist [email or web address] PATIENTS: You will also receive a letter with your examination results in an easy to read format. If you have questions about your results, please contact your referring provider. Narrative 03/16/2023 1:27 PM CDT As a result of the Century Cures Act, medical imaging exams and procedure reports are released immediately into your electronic medical record. You may view this report before your referring provider. If you have questions, please contact your health care provider. BILATERAL DIGITAL DIAGNOSTIC MAMMOGRAM WITH COMPUTER-AIDED DETECTION AND TOMOSYNTHESIS, 03/15/2023 BILATERAL BREAST LIMITED ULTRASOUND, 03/15/2023 CLINICAL HISTORY: 57-year-old female. Pain in lower outer quadrant of LEFT breast at 3-4 o'clock position. Pain in lateral RIGHT mid breast between 8 and 9 o'clock position. No palpable mass. TECHNIQUE: CC and MLO views were obtained. This digital study was evaluated with the assistance of computer-aided detection. Digital breast tomosynthesis utilized in interpretation. A BILATERAL breast limited ultrasound was also performed. COMPARISON: 11/18/2021. BREAST COMPOSITION: The breasts are heterogeneously dense, which may obscure small masses FINDINGS: There are no dominant masses, suspicious microcalcifications or areas of architectural distortion. Specifically within the lower outer quadrant of the LEFT breast and the mid outer to lower outer quadrant of the RIGHT breast, there is no abnormality. Therefore, ultrasound will be performed for further evaluation. Please see ultrasound report below from the same date. us Lis Ayala MD MAMMO Final Resul t * FECAL DNA (AKA COLOGUARD) (12/01/2021 10:07 AM CDT) us Lis Ayala MD COMMUNICATION ORD Final Res ult * (ABNORMAL) LIPID PANEL (11/24/2021 2:22 PM CDT) CHOLESTEROL,TOTAL 240(H) 100 - 199 mg/dL 11/24/2021 11:28 PM CDT [facility] TRIGLYCERIDES 96 <150 mg/dL 11/24/2021 11:28 PM CDT [facility] HDL CHOLESTEROL 111 >40 mg/dL 11:28 PM CDT [facility] NON-HDL CHOLESTEROL 129 <145 mg/dl 11/24/2021 11:28 PM CDT [facility] CHOL/HDL RATIO 2.16 <4.50 11/24/2021 11:28 PM CDT [facility] LDL CHOLESTEROL 110 <=130 mg/dL 11/24/2021 11:28 PM CDT [facility] VLDL CHOLESTEROL 19 <=30 mg/dL 11/24/2021 11:28 PM CDT [facility] PROVIDER ORDERED STATUS RANDOM 11/24/2021 11:28 PM CDT [facility] Blood BLOOD SPECIMEN / Unknown Venipuncture / Unknown 11/24/2021 2:22 PM CDT 11/24/2021 2:22 PM CDT us Lis Ayala MD CHEMISTRY Final Resul t [facility] [address] [place] [address], * HPV HIGH RISK (11/24/2021 1:55 PM CDT) TYPE 16 Negative Negative 11/29/2021 3:23 PM CDT [facility] TYPE 18 Negative Negative 11/29/2021 3:23 PM CDT [facility] OTHER HIGH RISK TYPES Negative Negative 11/29/2021 3:23 PM CDT [facility] Other (Cervical) Non-Blood / Unknown 11/24/2021 1:55 PM CDT 11/25/2021 10:04 AM CDT Narrative [facility] - 11/29/2021 3:23 PM CDT HPV types 16, 18, 31, 33, 35, 39, 45, 51, 52, 56, 58, 59, 66 and 68 DNA were undetectable or below the pre-set threshold. Methodology: Ron Neema 4800 HPV Test us Lis Ayala MD MICROBIOLOGY Final Resul t [facility] [address] [place] [address], [place] from Last 3 Months or Most Recently Relevant to Health Maintenance Insurance [employer] [facility] Care Teams Md Physician Dermatologist Relationship Specialty Start Date End Date Lis Ayala MD [address] [place] [address] PCP - General Family Practice 02/04/22
[2024-09-27 12:46] LABS: Appearance Urine Clear (Clear); Bilirubin Urine Negative (Negative); Blood Urine Negative (Negative); Color Urine Yellow (Yellow); Glucose Urine Negative (Negative); Ketones Urine Negative (Negative); Leukocyte Esterase Urine Negative (Negative); Nitrite Urine Negative (Negative); Protein Urine Negative (Negative); Specific Gravity Urine <= 1.005 (1.000-1.030); Urobilinogen Urine 0.2 (0.2-1.0)
[2024-09-27 13:10] LABS: RBC Urine 0-2 (0-2); WBC Urine 0-2 (0-5)
--- NOTE | 2024-09-27 14:29 | ED.ABDPAIN ---
HPI - Abdominal Pain General Time Seen by Provider: 14:30 Date Seen: 09/27/24 Chief Complaint: Abdominal Pain Stated Complaint: L side numbness, stabbing abdominal/groin pain Time Seen by Provider: 09/27/24 14:21 Source: patient, RN notes reviewed and old records reviewed Mode of arrival: ambulatory Limitations: no limitations History of Present Illness HPI narrative: This 58-year-old female is coming in with a multitude of symptoms. She had left lower abdominal stabbing pain today, does have a history of chronic pain in this area stemming back from May. She had a hemorrhoid develop, has been dealing with that. When she was at the clinic, had pain in her left lower quadrant and got a CT at [facility] in May. She states there was [address] CT, she went back for a contrast CT at that point. She ended up at [facility], had capsule endoscopy which was negative. She states she had a repeat CT just recently, Monday, which is negative. She continues to have this pain. She really has not felt well since May, notes when she eats she has some nausea symptoms, will feel baseline nausea. No vomiting. She really has not noticed any weight change. She has been trying to eat healthy year with all this, stools have been a little firmer with that. No fevers. No urinary symptoms. She also states this morning around 9:00 a.m. when this pain hit, pain made her leave work it was so bad. She noted left hand and forearm numbness tingling, feels that in her left foot as well. Still has been able to walk in utilize the extremities. She will note at times that her fingers in her hands can turn white and dusky. She has not had the left hand and foot go numb together. She has had a low-grade headache through all of this. She also notes last night she did not sleep well, had some chest discomfort. She is with a male dental laboratory worker, he wants to know what we are going to do about this, what we are going to do about the pain. Reviewed with them that she has some concerning things on her history with the left arm and left foot numbness tingling, do think we need to proceed with neuro imaging of this. We did review that she has been to specialty beyond what we have capacity for here. The ER is to rule out emergent conditions, we can look at labs, did discuss redoing CT imaging but she does not want to do that at this point. I think this is reasonable, can review labs, can see if I have time to try to get in to old records for her. Patient did have CT abdomen pelvis imaging done in 2021 for left upper quadrant pain. There are no CT findings to explain the cause of the patient's symptoms, no contrast was given for this exam. Related Data Home Medications ?Medication ?Instructions ?Recorded ?Confirmed lisinopril 10 mg tablet 20 mg PO DAILY 06/21/22 09/27/24 Previous Rx's ?Medication ?Instructions ?Recorded albuterol sulfate 90 mcg/actuation 1 inh inhalation QID PRN shortness 05/29/23 aerosol inhaler of breath or wheezing #6.7 grams Allergies Allergy/AdvReac Type Severity Reaction Status Date / Time Sulfa (Sulfonamide Allergy Mild Verified 09/27/24 12:21 Antibiotics) Review of Systems Status of ROS Reports: 6 or more systems reviewed and unremarkable except as noted in History and below [facility] Medical History (Updated 09/27/24 @ 18:33 by Sophie Boyce MD) Hypertension ?I10 - Essential (primary) hypertension (ICD-10) Social History Smoking Status: Current every day smoker What tobacco products do you use: cigarettes Smoking packs per day: 0.5 Smoking cigarettes per day: 10.0 Years smoked: 40 Smoking pack-years: 20.00 Do you use any of these nicotine containing products: E-Cigarettes Second hand tobacco smoke exposure: No How often do you have a drink containing alcohol: 4 or more times a week How many standard drinks containing alcohol do you have on a typical day: 3 or 4 How often do you have six or more drinks on one occasion: Weekly AUDIT-C Alcohol total score: 8 Non-prescribed substance use: denies use service: No Exam Const: Vital Signs, click to edit/add: Vital Signs - 24 hr 09/27/24 12:14 09/27/24 14:59 09/27/24 15:00 Temperature 97.6 F Pulse Rate 80 80 Pulse Rate [Pulse Oximeter] 73 Respiratory Rate 22 Blood Pressure Blood Pressure [Ri ght Upper Arm] 118/75 Pulse Oximetry 99 99 97 Oxygen Delivery Me thod Room Air 09/27/24 15:01 09/27/24 15:02 09/27/24 15:15 Temperature Pulse Rate 80 80 Pulse Rate [Pulse Oximeter] Respiratory Rate 16 Blood Pressure 127/72 Blood Pressure [Ri ght Upper Arm] Pulse Oximetry 97 96 98 Oxygen Delivery Me thod 09/27/24 15:44 09/27/24 15:45 09/27/24 16:00 Temperature Pulse Rate 79 81 74 Pulse Rate [Pulse Oximeter] Respiratory Rate Blood Pressure Blood Pressure [Ri ght Upper Arm] Pulse Oximetry 98 99 99 Oxygen Delivery Me thod 09/27/24 16:01 09/27/24 16:15 09/27/24 17:24 Temperature Pulse Rate 76 79 75 Pulse Rate [Pulse Oximeter] Respiratory Rate 14 16 Blood Pressure 124/75 141/83 H Blood Pressure [Ri ght Upper Arm] Pulse Oximetry 100 100 100 Oxygen Delivery Me thod 09/27/24 17:25 09/27/24 17:30 09/27/24 17:45 Temperature Pulse Rate 66 75 75 Pulse Rate [Pulse Oximeter] Respiratory Rate Blood Pressure Blood Pressure [Ri ght Upper Arm] Pulse Oximetry 100 100 99 Oxygen Delivery Me thod This 58-year-old female is alert, interactive, no apparent distress. She is very verbose, speech is articulate and clear. Pupils equal round reactive, sclera clear, extraocular muscles intact. Symmetrical facial function. Neck supple, no adenopathy, no thyromegaly masses or nodules. Lungs are clear, good air entry, no wheezing or crackles, no tachypnea, no accessory muscle use. CV regular rate and rhythm, 2/6 systolic murmur, normal S1-S2. Abdomen is soft, nondistended, bowel sounds are present. I feel no organomegaly, no masses, some mild left lower quadrant pain without rebound or guarding. She has no lower extremity edema. She can lift each leg off the bed and hold. She has normal 5/5 symmetrical strength throughout upper and lower extremities. She can do rapid alternating finger movements. Patient did ambulate in on her own without difficulty. She has sensation but states light touch sensation feels different in her left hand in foot verses her right side. Documenting provider has reviewed patient's vital signs: yes Course Course ED Course: This 58-year-old female has a multitude of symptoms including the left sided numbness tingling that does not include her face, no other neurologic symptoms with this. I do think we will do a head CT, will talk to Stroke Neurology. She may require the CTA of her head neck but will talk to Stroke Neurology 1st. As far as abdominal symptoms, she declines abdominal CT. Will recheck full complement of labs. Urinalysis had already been ordered and done and looks reassuring. Will get an EKG and troponin given she had some chest symptoms last night. I cannot tie all these symptoms together. But will certainly consider all of them. Reevaluation(s) Time of Reevaluation #1: 16:30 Reevaluation #1: Have reviewed reassuring labs outside of pending sed rate and TSH. Reviewed her consult with Neurology. She and I discussed further workup of her abdominal pain. She does not seem that uncomfortable at this time but states this morning it was. She does tell me now that it was reminiscent of abdominal pain that she had with a ruptured right ovarian cyst in 2003, states this happened [place]. She states she had to have emergent surgery for this ruptured cyst, states it almost killed her. We did discuss repeat CT imaging, the CT that was done on Monday was through independent radiology site. Her CTs done in May of 2020 for showed possible intussusception of the small bowel on the noncontrast, the follow-up with the contrast CT did show potential area of thickening of the small bowel. She had follow-up CT enterography with Dr. Boston at [facility] which was normal. She declined CT imaging at this time, will proceed with pelvic ultrasound just to ensure normal ovary and uterus on this side. Time of Reevaluation #2: 18:24 Reevaluation #2: Have provided patient her ultrasound report. There is of very small 7 mm para ovarian cyst. Did discuss that she should take the report to her primary, consider follow-up ultrasound in 1-2 months just to make sure that this is not changing. She has been having chronic headaches, this chronic abdominal pain. She has been trying some Tylenol. Discussed addition of NSAIDs. We did review that chronic headaches really are out of the brown of the ED. I certainly can give her some IV Toradol before she leaves. Reviewed with them that narcotics really should not be used. We will get dose of 15 mg IV Toradol, plan to discharge. She has a follow-up with GI on the and her primary on the , should keep these. Consultations Consultation #1: Have spoken with Dr. Neff from stroke Neurology. Reviewed patient's case, the complexity of this and the multitude of symptoms. He will let me know if he feels that he would recommend any further neuro imaging beyond the head CT I have ordered. Did review with him that I had placed other labs like thyroid inflammatory markers just to ensure no systemic issues. He is going to kindly see her, will contact me back after he has done the consult. 3:53 p.m.: Dr. Neff has seen the patient. He thinks that this is likely migraine related. This started with her abdominal pain, there is no face involvement and she has chronic headaches. Her symptoms are now down to just not being able to feel the side of the foot some of her fingers. He really does not believe this to be stroke pathology and does not feel that we need to proceed with further emergent neuro imaging. Time: 15:20 Vital Signs Vital signs: Initial Vital Signs Temperature 97.6 F 09/27/24 12:14 Temperature Source Temporal Artery Scan 09/27/24 12:14 Pulse Rate 73 09/27/24 12:14 Respiratory Rate 22 09/27/24 12:14 Blood Pressure 118/75 09/27/24 12:14 Blood Pressure Mean 89 09/27/24 12:14 Pulse Oximetry 99 09/27/24 12:14 Oxygen Delivery Method Room Air 09/27/24 12:14 Vital Signs Temperature 97.6 F 09/27/24 12:14 Pulse Rate 73 09/27/24 12:14 Respiratory Rate 22 09/27/24 12:14 Blood Pressure 118/75 09/27/24 12:14 Pulse Oximetry 99 09/27/24 12:14 Oxygen Delivery Method Room Air 09/27/24 12:14 Temperature 97.6 F 09/27/24 12:14 Pulse Rate 75 09/27/24 17:45 Respiratory Rate 16 09/27/24 17:24 Blood Pressure 141/83 H 09/27/24 17:24 Pulse Oximetry 99 09/27/24 17:45 Oxygen Delivery Method Room Air 09/27/24 12:14 MDM - Abdominal Pain Lab Data Attestation: I reviewed the patient's lab results. Labs: Lab Results 09/27/24 09/27/24 Range/Units 12:24 15:00 WBC 9.74 (4.50-11.00) K/uL RBC 3.56 L (4.00-5.20) m/uL Hgb 12.0 (12.0-16.0) gm/dL Hct 34.7 (33.0-51.0) % MCV 98 (80-100) fL MCH 34 (26-34) pg MCHC 35 (32-36) gm/dL RDW Coeff of Kenneth 11.6 (11.5-15.5) % Plt Count 268 (140-440) K/uL Neut % (Auto) 66.3 (42.0-72.0) % Lymph % (Auto) 23.5 (20-44) % [place] % (Auto) 8.0 (0.0-11.0) % Eos % (Auto) 0.9 (0.0-7.0) % Baso % (Auto) 0.3 (0.0-3.0) % Neut # (Auto) 6.45 (1.7-7.0) K/uL Lymph # (Auto) 2.29 (0.90-2.90) K/uL [place] # (Auto) 0.80 (0.00-0.90) K/UL Eos # (Auto) 0.09 (0.00-0.50) K/uL Baso # (Auto) 0.03 (0.00-0.30) K/uL Abs Immat Gran (auto) 0.10 (0.00-0.30) K/uL Imm/Tot Granulo (auto) 1.0 % ESR 3 (2-20) mm/hr Sodium 133 L (135-149) mmol/L Potassium 4.1 (3.6-5.1) mmol/L Chloride 100 (96-114) mmol/L Carbon Dioxide 24 (20-32) mmol/L Anion Gap 9 (7-15) mEq/L BUN 6 L (7-30) mg/dL Creatinine 0.5 (0.5-1.5) mg/dL Estimated Creat Clear 118.67 Estimated GFR 109 ml/min Glucose 91 (60-115) mg/dL Lactate 0.8 (0.5-1.9) mmol/L Calcium 10.2 (8.4-10.6) mg/dL Magnesium 2.1 (1.5-2.6) mg/dL Total Bilirubin 0.7 (0.1-1.5) mg/dL AST 22 (12-35) U/L ALT 8 (4-35) U/L Alkaline Phosphatase 84 (40-150) U/L Troponin I < 0.01 L (0.01-0.04) ng/mL C-Reactive Protein 1.6 H (0.5-1.0) mg/dL NT-Pro-B Natriuret Pep 1650 pg/mL Total Protein 7.2 (6.0-8.3) g/dL Albumin 4.2 (3.3-5.0) g/dL TSH 1.370 (0.270-4.200) uIU/mL Urine Color Yellow (Yellow) Urine Appearance Clear (Clear) Urine pH 6.0 (5.0-8.5) Ur Specific Maynard <= 1.005 (1.000-1.030) Urine Protein Negative (Negative) Urine Glucose (UA) Negative (Negative) Urine Ketones Negative (Negative) Urine Blood Negative (Negative) Urine Nitrite Negative (Negative) Urine Bilirubin Negative (Negative) Urine Urobilinogen 0.2 (0.2-1.0) Ur Leukocyte Esterase Negative (Negative) Urine RBC 0-2 (0-2) Urine WBC 0-2 (0-5) Ur Squamous Epith Cells None (None-Few) Urine Bacteria None (None) Imaging Data CT scan - head: Attestation: I have reviewed the pertinent imaging results. Radiologist's impression: Patient: EVITA [facility] Facility:?[facility] Patient ID:?[id number] Site Patient ID:?[id number]. Site :?[id number] Study:?CT-Head W/O-09/27/2024 3:28:23 PM Ordering Physician:Pj Barrios Final Report: INDICATION: numbness/tingling left lower arm/hand and foot TECHNIQUE: CT head without contrast. COMPARISON: None. FINDINGS: No intracranial hemorrhage. No discrete mass or mass effect. There is no midline shift. The basilar cisterns are patent. No hydrocephalus. Mild asymmetric prominence of the left lateral ventricle compared to) atherosclerotic calcifications. The hawthorne-white matter interface is otherwise preserved. No acute osseous abnormality. No extracalvarial soft tissue abnormality. The mastoid air cells are clear. The paranasal sinuses are well-aerated. The visualized portions of the orbits and globes are unremarkable. IMPRESSION: No acute intracranial process per unenhanced head CT. Please note that all CT scans at this facility use dose modulation, iterative reconstruction, and/or weight-based dosing when appropriate to reduce radiation dose to as low as reasonably achievable. Dictated by Calderon Hassan MD @ 09/27/2024 3:40:16 PM (Electronic Signature) US pelvis: Attestation: I have reviewed the pertinent imaging results. Radiologist's impression: Patient: EVITA ALCAARZ Facility:?[facility] Patient ID:?[id number] Site Patient ID:?[id number]. Site :?1965 Study:?US-Pelvis Transvaginal w/doppler-09/27/2024 5:32:11 PM Ordering Physician:?Carli Barrios Final Report: INDICATION: Left lower quadrant pain. TECHNIQUE: Ultrasound pelvis transvaginal for better assessment or to better visualize the endometrium. Real-time sonographic images with spectral and color Doppler imaging of the ovaries were obtained. COMPARISON: None. FINDINGS: Uterus: 5.4 x 3.7 x 4.8 cm. Normal echotexture of the myometrium. No masses. Retroverted position. Endometrium: Transvaginal imaging was performed to better evaluate the endometrium. Endometrial thickness measures 2 mm. No sign of endometrial mass or significant fluid. Right ovary is surgically absent. Left ovary measures 2.5 x 0.9 x 1.1 cm. 7 mm left paraovarian cyst. Normal arterial and venous blood flow is demonstrated in left ovary. Cul-de-sac: No significant free fluid. IMPRESSION: 1. No acute findings within the pelvis. 2. 7 mm left paraovarian cyst. Unremarkable left ovary. 3. Prior right oophorectomy. Dictated by Shin Reyes MD @ 09/27/2024 6:12:32 PM (Electronic Signature) ECG Data Attestation: I personally reviewed and interpreted this ECG as follows: (Normal sinus rhythm, 80 beats per minute. Patient has LVH with repolarization abnormality.) ECG interpretation date: 09/27/24 ECG interpretation time: 15:07 Prior ECG tracings: available for review (Had LVH in May 2022.) Discharge Plan Discharge Clinical Impression: Chronic headaches, Abdominal pain, left lower quadrant, Numbness and tingling in left hand, Numbness and tingling of foot Patient Disposition: Home, Self-Care Condition: Stable Instructions: Paresthesia (ED), General Headache (ED), Chronic Abdominal Pain (DC) Additional Instructions: Please keep your upcoming appointments with GI and your primary care provider. Can use Tylenol 1000 mg 3 times a day baseline for pain. Supplement with ibuprofen per bottle directions, take with food to protect your stomach. If you are having frequent headaches, may consider medication for headache prophylaxis, talk to your primary care provider about this; may need referral to Neurology if headaches continue to be problematic or your primary would prefer evaluation with them. It is unclear what the abdominal discomfort is but no further etiology was found tonight. Please take the ultrasound report to your primary care provider, would consider doing follow-up ultrasound at some point just to ensure no changes with the paraovarian cyst. Activity Level: Activity as Tolerated Prescriptions: No Action lisinopril 10 mg tablet 20 mg PO DAILY albuterol sulfate 90 mcg/actuation HFA aerosol inhaler 1 inh inhalation QID PRN (Reason: shortness of breath or wheezing) Qty: 6.7 0RF Follow Up/Referrals: Lis Ayala MD [Primary Care Provider] - Stand Alone Forms: [employer] Info Instructions
[2024-09-27 15:03] LABS: Lactate* 0.8 mmol/L (0.5-1.9)
[2024-09-27 15:06] LABS: Basophils Absolute Auto 0.03 K/uL (0.00-0.30); Basophils Percent Auto 0.3 % (0.0-3.0); Eosinophils Absolute Auto 0.09 K/uL (0.00-0.50); Eosinophils Percent Auto 0.9 % (0.0-7.0); Hematocrit 34.7 % (33.0-51.0); Lymphocytes Absolute Auto 2.29 K/uL (0.90-2.90); Lymphocytes Percent Auto 23.5 % (20-44); Mean Corpuscular HGB Conc 35 gm/dL (32-36); Mean Corpuscular Hemoglobin 34 pg (26-34); Mean Corpuscular Volume 98 fL (80-100); Neutrophils Absolute Auto 6.45 K/uL (1.7-7.0); Neutrophils Percent Auto 66.3 % (42.0-72.0); Platelet Count* 268 K/uL (140-440); RDW Coefficient of Variation % 11.6 % (11.5-15.5); Red Blood Count 3.56 m/uL (4.00-5.20); White Blood Count* 9.74 K/uL (4.50-11.00)
[2024-09-27 15:12] LABS: Slide Review Reflex No
[2024-09-27 15:30] LABS: Albumin* 4.2 g/dL (3.3-5.0); Chloride* 100 mmol/L (96-114); Potassium* 4.1 mmol/L (3.6-5.1); Sodium* 133 mmol/L (135-149)
[2024-09-27 15:32] LABS: Blood Urea Nitrogen* 6 mg/dL (7-30); Creatinine* 0.5 mg/dL (0.5-1.5); Est. Creatinine Clearance* 118.67; Estimated Glomerular Filt Rate 109 ml/min
[2024-09-27 15:33] LABS: Alanine Aminotransferase* 8 U/L (4-35); Alkaline Phosphatase* 84 U/L (40-150); Aspartate Amino Transferase* 22 U/L (12-35); Bilirubin Total* 0.7 mg/dL (0.1-1.5); Calcium* 10.2 mg/dL (8.4-10.6); Carbon Dioxide* 24 mmol/L (20-32); Glucose* 91 mg/dL (60-115); Magnesium* 2.1 mg/dL (1.5-2.6); Total Protein* 7.2 g/dL (6.0-8.3)
[2024-09-27 15:36] LABS: C Reactive Protein* 1.6 mg/dL (0.5-1.0)
[2024-09-27 15:41] LABS: Anion Gap 9 mEq/L (7-15)
[2024-09-27 15:48] LABS: NT Pro B Type NatriureticPept* 1650 pg/mL; Troponin I* < 0.01 ng/mL (0.01-0.04)
[2024-09-27 16:23] LABS: Erythrocyte SedimentationRate* 3 mm/hr (2-20)
[2024-09-27] MEDS: KETOROLAC 15 MG/ML inj IVP (18:37)
== END 2024-09-27 18:54 | disposition home or self-care (01) ==
PROVIDERS: Emergency Provider Family Medicine; PCP Family Medicine
DX: R10.32 Left lower quadrant pain (principal); R51.9 Headache, unspecified; R20.0 Anesthesia of skin
CPT/HCPCS: 36415; 70450; 76830; 80053; 81001; 83605; 83735; 83880; 84443; 84484; 85025; 85651; 86140; 93005; 93976; 94761; 96374; 99285; J1885